=== PATIENT | male | born 1995 | race Caucasian/White ===

== ENCOUNTER 2018-10-24 10:14 | Emergency (ER) | payer MEDICAID, OTHER ==
[2018-10-24] MEDS ORDERED: NS 1,000 ML IV ONE ×2 (10:46→11:38)
--- NOTE | 2018-10-24 10:51 | EDPHY ---
H & P Stated Complaint: Intermittent periumbilical abd pain since summer 2017, worse today Time Seen by Provider: 10/24/18 10:24 HPI/ROS: CHIEF COMPLAINT: Internal pain HISTORY OF PRESENT ILLNESS: This is a 23-year-old male presents emergency department with a slightly difficult history. Patient reports that he has had "internal pain"for year. On further questioning it sounds like the patient has had intermittent episodes of rectal pain, and constipation with significant discomfort when stooling. This has come and gone for the last year. Family reports that when he goes on a long hike he will often report lower abdominal and rectal discomfort. He did see a contract administration specialist a while ago and was told he did not have any external hemorrhoids. At that time the patient had been using rectal suppositories quite frequently and he was advised to stop using them is the cause thinning of the mucosa. Patient denies any melanotic stool. He denies any rash, penile discharge, testicular pain, testicular swelling. Patient denies any new sexual partners, reporting that he has not had sexual intercourse for quite some time. He also denies history of recent rectal intercourse. Today, the patient developed periumbilical and suprapubic discomfort associated with some nausea vomiting yesterday, and diarrhea today. No fever. Discomfort is slightly worse on the left. No known ill contacts. No fever, chills, chest pain, shortness of breath, palpitations, urinary complaints, headache, lightheadedness. REVIEW OF SYSTEMS: A comprehensive 10 system review of systems was reviewed and is otherwise negative aside from elements mentioned in the history of present illness and medical decision making. PAST MEDICAL HISTORY: "Internal pain" which sounds to me to be intermittent episodes of rectal discomfort. Takes clonazepam for anxiety. Reports frequent issues with constipation. SOCIAL HISTORY: Nonsmoker. Here with his sister who he lives with. VITAL SIGNS Reviewed by me. GENERAL: Well-developed, well-nourished, resting comfortably in no respiratory distress. Somewhat vague in his answers. HEENT: Atraumatic. Eyes: No icterus, no injection. Mouth: moist mucous membranes. No erythema or lesions. Neck: supple with no adenopathy. LUNGS: Clear to auscultation bilaterally, no wheezes, rhonchi or rales. CARDIAC: Regular rate and rhythm, no rubs, murmurs or gallops. ABDOMEN: [Soft, mild periumbilical, right lower quadrant, and left lower quadrant tenderness to palpation. No guarding or rebound. No tenderness at McBurney's point. No distension. : Normal male external genitalia. No penile discharge or lesions. Testes are nontender. RECTAL: No external hemorrhoids. Normal rectal tone. Nontender exam. Mild tenderness over the prostate. No stool on the glove. STOOL. BACK: No CVA tenderness. EXTREMITIES: No trauma. No edema. Range of motion is normal throughout. NEURO: Alert and oriented, grossly nonfocal. SKIN: Warm and dry, no rash. PSYCHIATRIC: Normal mentation, no agitation. - Personal History Current Tetanus/Diphtheria Vaccine: Unsure Current Tetanus Diphtheria and Acellular Pertussis (TDAP): Unsure - Medical/Surgical History Hx Asthma: No Hx Chronic Respiratory Disease: No Hx Diabetes: No Hx Cardiac Disease: No Hx Renal Disease: No Hx Cirrhosis: No Hx Alcoholism: No Hx HIV/AIDS: No Hx Splenectomy or Spleen Trauma: No Other PMH: anxiety, bilat wrist surgery - Social History Smoking Status: Former smoker Constitutional: Initial Vital Signs Temperature (C) 36.6 C 10/24/18 10:19 Heart Rate 56 L 10/24/18 10:19 Respiratory Rate 16 10/24/18 10:19 Blood Pressure 118/75 10/24/18 10:19 O2 Sat (%) 96 10/24/18 10:19 O2 Delivery Mode Room Air Allergies/Adverse Reactions: No Known Allergies Allergy (Verified 10/24/18 10:19) Home Medications: Medication Instructions Recorded Clonazepam 10/24/18 Hydrocodone/APAP 5/325 [[place] 1 tab PO Q6H PRN #10 tab 10/24/18 5/325 (RX)] Hyoscyamine Sulfate [Levsin] 0.125 mg PO Q4 PRN #20 tablet 10/24/18 Ondansetron Odt [Zofran Odt 4 mg 4 mg PO Q6 PRN #8 tab 10/24/18 (RX)] Medical Decision Making - Diagnostics Imaging Results: Imaging Impressions Abdomen X-Ray 10/24/18 11:10 Impression: Overall paucity of bowel gas without evidence of obstruction. Abdomen CT 10/24/18 12:00 Impression: 1. No definite etiology for the patient's pain. 2. Apparent bladder wall thickening, which could be related to underdistention or less likely inflammation/infection. Imaging: Discussed imaging studies w/ scallop raker Radiologist ED Course/Re-evaluation: Occult blood test was negative. IV was placed in the patient received a L normal saline. At patient's request, GC and Chlamydia studies were sent. Differential after my history and physical includes constipation, viral gastroenteritis, prostatitis, rectal pain. Labs including CBC, chemistries, and urinalysis all unremarkable. X-ray obtained showing a nonspecific bowel gas pattern without any signs of significant constipation. Patient was reexamined at 12:00 p.m.. He reports no improvement in his discomfort after receiving IV fluids. He is requesting further imaging studies including a CT scan. I reassured him that I thought today's episode was most likely a some type of gastroenteritis and that supportive care is most likely all that is needed, however, he is quite concerned regarding his long-standing pain in addition to the pain today and feels that these are related. CT scan was ordered. Patient's CT scan is negative for any acute findings. Patient was discharged with Levsin to use as needed for crampy abdominal pain, encouraged to drink plenty of fluid, given Zofran for any recurrent vomiting, and encouraged follow-up with Gastroenterology. Urine microscopic and urine GC and chlamydia are pending at the time of this dictation. Differential Diagnosis: After obtaining the patient's history and performing an examination, differential diagnosis considered included but was not limited to appendicitis, gastroenteritis, hemorrhoids, rectal bleeding, proctitis, urinary tract infection, prostatitis. - Data Points Laboratory Results: 10/24/18 10/24/18 10/24/18 11:30 11:30 10:50 POC Sodium 143 mEq/L mEq/L (135-145) POC Potassium 3.7 mEq/L mEq/L (3.3-5.0) POC Chloride 103.0 mEq/L mEq/L (97-110) POC Total CO2 24 mEq/L mEq/L (22-31) POC BUN 12 mg/dL mg/dL (7-23) POC Creatinine 1.1 mg/dL mg/dL (0.7-1.3) POC Glucose 101 mg/dL H mg/dL (70-100) POC Calcium 9.7 mg/dL mg/dL (8.5-10.4) Urine RBC NONE SEEN /hpf /hpf (0-3) Urine WBC 0-1 /hpf /hpf (0-3) Ur Epithelial Cells NONE SEEN /lpf /lpf (NONE-1+) Urine Sperm PRESENT /hpf /hpf (NONE SEEN) C.trachomatis RNA (TMA) Pending N.gonorrhoeae RNA (TMA) Pending Medications Given: Discontinued Medications Fentanyl (Sublimaze) 50 mcg IVP EDNOW ONE Stop: 10/24/18 11:38 Last Admin: 10/24/18 11:47 Dose: 50 mcg Hydromorphone HCl (Dilaudid) 0.5 mg IVP EDNOW ONE Stop: 10/24/18 13:00 Last Admin: 10/24/18 13:09 Dose: 0.5 mg Hyoscyamine Sulfate (Levsin, Hyomax-Sl) 0.125 mg PO EDNOW ONE Stop: 10/24/18 13:11 Last Admin: 10/24/18 13:11 Dose: 0.125 mg Sodium Chloride (Ns) 1,000 mls @ 0 mls/hr IV EDNOW ONE; Wide Open PRN Reason: Protocol Stop: 10/24/18 10:47 Last Admin: 10/24/18 10:49 Dose: 1,000 mls Sodium Chloride (Ns) 1,000 mls @ 0 mls/hr IV ONCE ONE PRN Reason: Wide Open Stop: 10/24/18 11:39 Last Admin: 10/24/18 11:44 Dose: 1,000 mls Ketorolac Tromethamine (Toradol) 30 mg IVP EDNOW ONE Stop: 10/24/18 12:31 Last Admin: 10/24/18 12:32 Dose: 30 mg Ondansetron HCl (Zofran) 4 mg IVP EDNOW ONE Stop: 10/24/18 11:38 Last Admin: 10/24/18 11:44 Dose: 4 mg Point of Care Test Results: CBC CBC Collection Date 10/24/18 CBC Collection Time 10:32 WBC 7.4 RBC 5.17 HGB 15.8 HCT 45.9 PLT 222 Neut # 5.0 Neut 67.2 LYMPH # 2.0 LYMPH 27.6 Other WBC # 0.4 Other WBC 5.2 MCV 88.8 Chemistry 10/24/18 10:50 POC Sodium 143 mEq/L mEq/L (135-145) POC Potassium 3.7 mEq/L mEq/L (3.3-5.0) POC Chloride 103.0 mEq/L mEq/L (97-110) POC Total CO2 24 mEq/L mEq/L (22-31) POC BUN 12 mg/dL mg/dL (7-23) POC Creatinine 1.1 mg/dL mg/dL (0.7-1.3) POC Glucose 101 mg/dL H mg/dL (70-100) POC Calcium 9.7 mg/dL mg/dL (8.5-10.4) Basic Metabolic Panel BMP Collection Date 10/24/18 BMP Collection Time 10:32 Occult Blood Occult Blood Collection Date 10/24/18 Occult Blood Collection Time 10:45 Occult Blood Result Negative/Negative Urine Dip Collection Date 10/24/18 Collection Time 11:30 Specific [place] (1.002-1.030) 1.025 PH (5.0-7.5) 5.5 Leukocytes (Negative) Negative Nitrites (Negative) Negative Protein (Negative) Negative Glucose (Negative) Negative Ketones (Negative) 2+ Urobilnogen (0.2-1.0 EU) 0.2 Bilirubin (Negative) Test Not Performed Blood (Negative) Negative Departure - Departure Disposition: Home, Routine, Self-Care Clinical Impression: Rectal pain Abdominal pain Qualifiers: Abdominal location: lower abdomen, unspecified Qualified Code(s): R10.30 - Lower abdominal pain, unspecified Condition: Good Instructions: Acute Abdominal Pain (ED), Rectal Pain (ED) Additional Instructions: Please followup with [facility] regarding both your abdominal pain and your rectal pain. Please take the Zofran as needed for recurrent nausea and vomiting. If you develop recurrent diarrhea, please return to the emergency department with a stool sample. If you continue to have persistent diarrhea, consider starting Imodium. If you develop a fever, persistent vomiting and diarrhea not treated with the above measures, developed pain with urinating, blood in the urine, or inability to void completely, please return to the emergency department or follow up urgently. I believe your vomiting and diarrhea today may be related to a viral gastroenteritis. This will be self-limited. Your intermittent episodes of rectal pain may be related to internal hemorrhoids , constipation with rectal irritation, rectal fissures, or prostatitis. If you developed blood in your stools which is persistent, develops a fever, they have significant discomfort with urination, please return to the emergency department or seek care urgently. You been given referral to both Gastroenterology and to a primary care physician. Referrals: NONE *PRIMARY CARE P,. [Primary Care Provider] - As per Instructions Dami Orosco MD [Medical Doctor] - As per Instructions Vicente Thomas DO [Medical Doctor] - As per Instructions Prescriptions: Hydrocodone/APAP 5/325 [[place] 5/325 (RX)] 1 tab PO Q6H PRN #10 tab PRN Reason: Pain Hyoscyamine Sulfate [Levsin] 0.125 mg PO Q4 PRN #20 tablet PRN Reason: crampy abdominal pain Ondansetron Odt [Zofran Odt 4 mg (RX)] 4 mg PO Q6 PRN #8 tab PRN Reason: Nausea
[2018-10-24] MEDS ORDERED: ONDANSETRON 4 MG/2 ML VIAL IVP ONE (11:37)
[2018-10-24] MEDS ORDERED: fentaNYL 100 MCG/2 ML INJ IVP ONE (11:37)
[2018-10-24] MEDS ORDERED: IOPAMIDOL (ISOVUE-300) 100 ML BTL ONE (12:06)
[2018-10-24] MEDS ORDERED: KETOROLAC 30 MG/1 ML SDV IVP ONE (12:30)
[2018-10-24] MEDS ORDERED: HYDROmorphONE/DILAUDID 2 MG/ML INJ IVP ONE (12:59)
[2018-10-24] MEDS ORDERED: HYOSCYAMINE SULFATE 0.125 MG TAB PO ONE (13:10)
[2018-10-24 13:38] VITALS: BP 122/68
[2018-10-25 12:21] LABS: GC AMPLIFICATION GENPROBE NEGATIVE (NEGATIVE)
== END 2018-10-24 13:28 | disposition home or self-care (01) ==
LOC: CED 10:14
DX: K62.89 Other specified diseases of anus and rectum (principal); R10.30 Lower abdominal pain, unspecified; F41.9 Anxiety disorder, unspecified; Z79.899 Other long term (current) drug therapy; E86.9 Volume depletion, unspecified
CPT/HCPCS: 74019-PO; 74177-PO; 80048-PO; 96374; J1170; J1885; J2405; J3010; Q9967

== ENCOUNTER 2018-12-27 12:41 | Emergency (ER) | payer MEDICAID ==
[2018-12-27 12:54] VITALS: BP 111/89
--- NOTE | 2018-12-27 13:07 | EDPHY ---
H & P Stated Complaint: Pt. states awoke and noticed left bicep area with rash Time Seen by Provider: 12/27/18 12:49 HPI/ROS: Chief Complaint: Rash HPI: 23-year-old male woke this morning and noticed a rash in the inside of his left upper arm. He is concerned because his brother in law had shingles a couple weeks ago. Patient states he is itchy. Does not painful. Did not start with any pain. Not had any recent symptoms. He did have chickenpox as a child. No history of immunosuppression or other medical problems. No known exposures. No fevers or chills. ROS: 10 systems were reviewed and were negative except those elements noted in the HPI. PMH: Denies Social History: No smoking, no alcohol, no recreational drug use Family History: non-contributory Physical Exam: Gen: Awake, Alert, No Distress HEENT: Nose: no rhinorrhea Eyes: PERRLA, EOMI Mouth: Moist mucosa Neck: Supple, no JVD Chest: nontender, lungs clear to auscultation Heart: S1, S2 normal, no murmur Abd: Soft, non-tender, no guarding Back: no CVA tenderness, no midline tenderness Ext: no edema, non-tender Skin: Patient has 5 or 6 punctate furnuncle on his left inner upper arm. They are not on an erythematous base. There is no erythema. There is no tenderness. There are no masses, tenderness or fluctuance. No lymphadenopathy. Neuro: CN II-XII intact, Sensation grossly intact, Strength 5/5 in bilateral upper and lower extremities - Personal History Current Tetanus Diphtheria and Acellular Pertussis (TDAP): Unsure - Medical/Surgical History Hx Asthma: No Hx Chronic Respiratory Disease: No Hx Diabetes: No Hx Cardiac Disease: No Hx Renal Disease: No Hx Cirrhosis: No Hx Alcoholism: No Hx HIV/AIDS: No Hx Splenectomy or Spleen Trauma: No Other PMH: anxiety, levator spasms. Surg-bilat wrist - Social History Smoking Status: Former smoker Constitutional: Initial Vital Signs Temperature (C) 36.8 C 12/27/18 12:50 Heart Rate 52 L 12/27/18 12:50 Respiratory Rate 16 12/27/18 12:50 Blood Pressure 111/89 H 12/27/18 12:50 O2 Sat (%) 95 12/27/18 12:50 O2 Delivery Mode Room Air Allergies/Adverse Reactions: No Known Allergies Allergy (Verified 12/27/18 12:49) Home Medications: Medication Instructions Recorded Sertraline HCl 12/27/18 Valium 10 MG (*) BID 12/27/18 Medical Decision Making ED Course/Re-evaluation: Patient has a mild early folliculitis. History and symptoms are not consistent with shingles at this time. There is no erythema. Not warm to touch. No evidence of cellulitis. Will discharge with supportive care, follow up with primary care physician. Departure - Departure Disposition: Home, Routine, Self-Care Clinical Impression: Folliculitis Condition: Good Instructions: Folliculitis (ED) Additional Instructions: Wash twice daily with soap and water. Keep the area covered. Follow up with primary care physician in about a week if symptoms are not improving. Referrals: Vicente Thomas DO [Primary Care Provider] - As per Instructions
== END 2018-12-27 13:18 | disposition home or self-care (01) ==
LOC: CED 12:41
DX: L73.9 Follicular disorder, unspecified (principal)
CPT/HCPCS: 99282-ER